=== PATIENT | female | born 1975 | race African-American/Black ===

== ENCOUNTER → 2019-06-24 | Outpatient (CLI) | payer OTHER ==
[~2019-06-24] MED LIST: IBUPROFEN 600600 M1 PO; NORCO 5-325 TA1 EACH OR; PRENATAL PO; ZOFRAN4 MG PO
== END ==
LOC: ULTRA 08:01
DX: R10.11 Right upper quadrant pain (principal)

== ENCOUNTER → 2019-07-10 | Outpatient (CLI) | payer OTHER | LOC: NUC 07:39 | DX: R10.11 Right upper quadrant pain (principal); R11.0 Nausea ==

== ENCOUNTER 2019-08-28 09:20 | Emergency (ER) | payer OTHER ==
[~2019-08-28] VITALS: Ht 175.3 cm; Wt 81.7 kg
[2019-08-28 10:01] LABS: ABSOLUTE NEUTROPHILS 4.2 thou/uL (1.4-8.2); BASOPHILS 0.6 % (0.0-2.0); EOSINOPHILS 4.5 % (0.0-3.0); HEMATOCRIT 40.8 % (37.0-47.0); HEMOGLOBIN 13.6 gm/dL (12.0-15.0); LYMPHOCYTES 15.3 % (24.0-44.0); MCH 28.3 pg (26.0-34.0); MCHC 33.4 g/dL (28.0-37.0); MCV 84.9 fL (80.0-100.0); MONOCYTES 6.7 % (1.0-8.0); PLATELET COUNT 238 thou/uL (150-400); POLYS 72.9 % (36.0-66.0); RBC 4.81 mil/uL (4.20-5.00); RDW 13.7 % (10.5-14.5); WBC 5.7 thou/uL (4.0-11.0)
[2019-08-28 10:10] LABS: CALCIUM 9.3 mg/dL (8.5-10.1); CREATININE 0.8 mg/dL (0.6-1.0); POTASSIUM 3.2 mmol/L (3.5-5.1)
[2019-08-28 10:16] LABS: ALBUMIN 4.1 g/dL (3.4-5.0); TOTAL BILIRUBIN 0.5 mg/dL (<0.1-1.0); TOTAL PROTEIN 8.2 g/dL (6.4-8.2)
[2019-08-28 10:40] LABS: URINE BLOOD NEGATIVE (Negative); URINE CLARITY SL CLOUDY; URINE COLOR YELLOW; URINE GLUCOSE-RANDOM* NEGATIVE (Negative); URINE KETONES TRACE (Negative); URINE LEUKOCYTES-REFLEX NEGATIVE (Negative); URINE NITRITE-REFLEX NEGATIVE (Negative); URINE PROTEIN (DIPSTICK) TRACE (Negative); URINE SPECIFIC GRAVITY >= 1.030 (1.005-1.035); URINE UROBILINOGEN 0.2 E.U./dl (0.2-1.0)
[2019-08-28 10:46] LABS: ICTOTEST (BILI CONFIRMATORY) Negative (Negative); URINE BILIRUBIN NEGATIVE (Negative)
[2019-08-28] MEDS ORDERED: BENTYL 20 MG TA20 M1 PO (11:34)
[2019-08-28] MEDS ORDERED: ONDANSETRON HCL4 M2 PO (11:34)
[2019-08-28 12:07] VITALS: BP 110/75
== END 2019-08-28 12:11 | disposition home or self-care (01) ==
LOC: ER 09:20
PROVIDERS: Emergency Medicine
DX: R10.10 Upper abdominal pain, unspecified (principal); R19.7 Diarrhea, unspecified; Z91.018 Allergy to other foods; Z88.8 Allergy status to other drugs, medicaments and biological substances